=== PATIENT | male | born 1945 | race Caucasian/White ===

== ENCOUNTER → 2019-09-19 10:25 | Outpatient (CLI) | payer MEDICARE, SELFPAY ==
[2019-09-19 11:31] LABS: Hemoglobin A1C% w Est Avg Glu 6.1 % (4.0-6.0)
[2019-09-19 12:02] LABS: Alanine Aminotransferase 36 IU/L (21-72); Albumin 4.3 g/dL (3.5-5.0); Albumin Globulin Ratio 1.5 (1.0-2.8); Alkaline Phosphatase 85 U/L (38-126); Aspartate Aminotransferase 42 IU/L (17-59); BUN Creatinine Ratio 13.3 (6-22); Bilirubin Total 0.8 mg/dL (0.2-1.3); Blood Urea Nitrogen 12 mg/dL (9-20); Calcium 9.5 mg/dL (8.4-10.2); Carbon Dioxide 29 mmol/L (22-32); Chloride 102 mmol/L (98-107); Cholesterol 205 mg/dL (140-199); Estimated Glomerular Filt Rate > 60.0 mL/min (>60); Globulin 2.8 g/dL (1.7-4.1); Glucose 133 mg/dL (80-110); HDL Cholesterol 38 mg/dL (40-60); HEMOLYSIS < 15 (0-50); LDL Cholesterol Calculated 142 mg/dL (<100); Potassium 5.2 mmol/L (3.4-5.1); Sodium 141 mmol/L (137-145); Total Protein 7.1 g/dL (6.3-8.2); Triglycerides 125 mg/dL (35-150)
[2019-09-19 12:04] LABS: Creatinine Urine Random 74.4 mg/dL
[2019-09-19 12:09] LABS: Microalbumin Urine Random 0.6 mg/dL (0-1.6)
== END ==
PROVIDERS: Visit Provider Internal Medicine Endocrinology, Diabetes & Metabolism
DX: E11.40 Type 2 diabetes mellitus with diabetic neuropathy, unspecified (principal); E78.5 Hyperlipidemia, unspecified
CPT/HCPCS: 36415; 80053; 80061; 82043; 82570; 83036

== ENCOUNTER 2020-03-15 09:50 | Emergency (ER) | payer MEDICARE, SELFPAY ==
[2020-03-15 09:55] VITALS: BP 204/93; PULSE 81; RESP 15; TEMP 36.3; O2SAT 96; BMI 31.4
[2020-03-15 10:45] VITALS: BP 199/89
--- NOTE | 2020-03-15 10:48 | ED.SKABFB ---
HPI - Skin/Abscess/Foreign Bdy General Chief complaint: Skin/Abscess/Foreign Body Stated complaint: Infection of lt side face Time Seen by Provider: 03/15/20 10:29 Source: patient and family Mode of arrival: Ambulatory Limitations: no limitations History of Present Illness HPI narrative: Patient placed on amoxicillin by his pain management doctor yesterday. Onset yesterday morning around 3:00 a.m.. Patient had left cheek and jaw pain and swelling. Denies any dental pain. No known injuries. History of diabetes. Blood pressure noted. No history of high blood pressure on the medications for blood pressure. Patient states he is anxious. Family physician is from [place]. Patient does live up here. History of shingles 20 years ago. Patient states burning sensation to the left face. Has some swelling. Denies any recent illness cough cold congestion fever chills runny nose or cough. Related Data Home Medications Medication Instructions Recorded Confirmed cholecalciferol (vitamin D3) 2,000 iu PO QDAY #0 03/24/17 [Vitamin D3] diphenhydramine-acetaminophen 1 tab PO HSP PRN #0 03/24/17 [Tylenol PM Extra Strength] meloxicam [Mobic] 15 mg PO QPM #0 03/24/17 metformin [Glucophage XR] 1,000 mg PO BIDCC #0 03/24/17 omega 5-xqj-bvj-fish oil [Fish Oil] 1,000 mg PO QDAY #0 03/24/17 psyllium husk [Metamucil] 0.52 gm PO QDAYP PRN #0 03/24/17 gabapentin [Neurontin] 1,800 mg PO HS #0 03/25/17 rosuvastatin 5 mg PO HS #0 08/14/17 Previous Rx's Medication Instructions Recorded aspirin 81 mg PO QDAY #30 tab 03/25/17 lisinopril 5 mg PO DAILY #14 tab 03/15/20 Allergies Allergy/AdvReac Type Severity Reaction Status Date / Time No Known Drug Allergies Allergy Verified 03/15/20 10:00 Review of Systems Review of Systems Narrative: GENERAL: Denies chills, fatigue, malaise, fever, sweats. HEENT: Denies sinus pain, ear pain, sore throat, difficulty swallowing, dizziness. RESPIRATORY: Denies dyspnea, cough, wheezing, hemoptysis, sputum. CARDIOVASCULAR: Denies chest pain, palpitations, orthopnea, edema, GASTROINTESTINAL: Denies nausea, vomiting, abdominal pain, diarrhea, constipation, melena. : Denies dysuria, frequency, incontinence, hematuria, urinary retention. MUSCULOSKELETAL: denies weakness, joint pain, or bony pain SKIN: Has rash on the face NEUROLOGIC: Denies weakness, headache, numbness, change in speech, confusion, seizures, incoordination. PSYCHIATRIC: No concerning psychosocial issues. 12 point review of systems is negative except for those stated above ROS Unobtainable: All systems reviewed & are unremarkable except as noted in HPI and below Patient History Social History Smoking Status: Unknown if ever smoked Smoking Status: Unknown if ever smoked alcohol intake frequency: holidays/special occasions only Substance Use Type: does not use Exam Narrative Exam Narrative: GENERAL: [] year old patient appears stated age. Well-nourished, well-developed patient, in no distress, not toxic HEAD: Atraumatic. Normocephalic. EYES: No conjunctivitis. No eyelid edema or erythema. No rash on the nose. Denies any eye pain ENT: Nose without bleeding, purulent drainage. Throat without erythema, tonsillar hypertrophy or exudate. Airway patent. Nontender teeth on palpation. No palpable abscess no vesicles or rash on the nose. NECK: Trachea midline. Non tender NEURO: AOx3. SKIN: Reproducible tenderness at the skin at the left cheek. Mild edema at the jawline. No palpable abscess. No vesicles. Mild erythema at the left cheek Initial Vital Signs Initial Vital Signs: Vital Signs Temperature 97.3 F L 03/15/20 09:55 Pulse Rate 81 03/15/20 09:55 Respiratory Rate 15 03/15/20 09:55 Blood Pressure 204/93 H 03/15/20 09:55 Pulse Oximetry 96 03/15/20 09:55 Course Orders Ordered: Discontinued Medications Lisinopril (Zestril) 5 mg PO NOW ONE Stop: 03/15/20 10:50 Last Admin: 03/15/20 11:04 Dose: 5 mg Documented by: TALHA Reevaluation(s) Reevaluation #1: Time 11:49 a.m.. Blood pressure recheck. 204/87. Patient asymptomatic with blood pressure. Appropriate for discharge home, given prescription for lisinopril. Patient does have a family physician. Vital Signs Vital signs: Vital Signs - 8 hr 03/15/20 09:55 03/15/20 10:45 03/15/20 11:41 Temperature 97.3 F L Pulse Rate 81 68 Respiratory Rate 15 18 Blood Pressure 204/93 H Blood Pressure [Right Arm] 199/89 H 204/87 H Pulse Oximetry 96 98 MDM - Skin/Abscess/Foreign Bdy Differential Diagnosis Differential diagnosis: Likely abscess of skin or subcutaneous tissue, cellulitis and other (Herpes zoster) MDM Narrative Medical decision making narrative: Patient and agree observation at home no new changes or medications other than lisinopril. Patient cannot get to his primary care physician due to coronavirus and [id number] guidelines. Will start lisinopril here. Patient agrees with observation for the cellulitis as tomorrow would be 72 hours and patient has only had 3 doses of amoxicillin since yesterday. Agrees will return tomorrow if not improving and may consider acyclovir and prednisone. Discharge Plan Departure Patient Disposition: Home Clinical Impression: Cellulitis Qualifiers: Site of cellulitis: face Qualified Code(s): L03.211 - Cellulitis of face Instructions: DI for Cellulitis -- Adult, Treatments for High Blood Pressure: More Than Just Taking a Pill, Essential Hypertension Activity Restrictions/Additional Instructions: Return if worse or not improving by tomorrow. Call your family doctor for appointment for recheck of blood pressure. To be seen within a week. Prescriptions: New lisinopril 5 mg tablet 5 mg PO DAILY Qty: 14 RF: 0 No Action metformin [Glucophage XR] 500 MG tablet extended release 24 hr 1,000 mg PO BIDCC Qty: 0 RF: 0 meloxicam [Mobic] 15 MG tablet 15 mg PO QPM Qty: 0 RF: 0 diphenhydramine-acetaminophen [Tylenol PM Extra Strength] 500 MG/25 MG tablet 1 tab PO HSP PRNQty: 0 RF: 0 psyllium husk [Metamucil] 0.52 GM capsule 0.52 gm PO QDAYP PRNQty: 0 RF: 0 cholecalciferol (vitamin D3) [Vitamin D3] 2,000 UNIT capsule 2,000 iu PO QDAY Qty: 0 RF: 0 omega 4-hgq-zdo-fish oil [Fish Oil] 1,000 MG capsule 1,000 mg PO QDAY Qty: 0 RF: 0 gabapentin [Neurontin] 600 MG tablet 1,800 mg PO HS Qty: 0 RF: 0 aspirin 81 MG tablet,delayed release (DR/EC) 81 mg PO QDAY Qty: 30 RF: 0 rosuvastatin 5 MG tablet 5 mg PO HS Qty: 0 RF: 0
[2020-03-15] MEDS: lisinopriL 5 MG TABLET PO (11:04)
[2020-03-15 11:41] VITALS: BP 204/87; PULSE 68; RESP 18; O2SAT 98
--- NOTE | 2020-03-15 11:41 | PC.NURSE ---
denies headache,vision changes, chest pain, or shortness of breath. noted bilateral lower legs edema, pt states, its always swelling.
--- NOTE | 2020-03-15 11:54 | ED.SKABFB ---
HPI - Skin/Abscess/Foreign Bdy General Chief complaint: Skin/Abscess/Foreign Body Stated complaint: Infection of lt side face Time Seen by Provider: 03/15/20 10:29 Source: patient and family Mode of arrival: Ambulatory Limitations: no limitations Related Data Home Medications Medication Instructions Recorded Confirmed cholecalciferol (vitamin D3) 2,000 iu PO QDAY #0 03/24/17 [Vitamin D3] diphenhydramine-acetaminophen 1 tab PO HSP PRN #0 03/24/17 [Tylenol PM Extra Strength] meloxicam [Mobic] 15 mg PO QPM #0 03/24/17 metformin [Glucophage XR] 1,000 mg PO BIDCC #0 03/24/17 omega 4-hsj-bhc-fish oil [Fish Oil] 1,000 mg PO QDAY #0 03/24/17 psyllium husk [Metamucil] 0.52 gm PO QDAYP PRN #0 03/24/17 gabapentin [Neurontin] 1,800 mg PO HS #0 03/25/17 rosuvastatin 5 mg PO HS #0 08/14/17 Previous Rx's Medication Instructions Recorded aspirin 81 mg PO QDAY #30 tab 03/25/17 lisinopril 5 mg PO DAILY #14 tab 03/15/20 Allergies Allergy/AdvReac Type Severity Reaction Status Date / Time No Known Drug Allergies Allergy Verified 03/15/20 10:00 Patient History Social History Smoking Status: Unknown if ever smoked Smoking Status: Unknown if ever smoked alcohol intake frequency: holidays/special occasions only Substance Use Type: does not use Exam Initial Vital Signs Initial Vital Signs: Vital Signs Temperature 97.3 F L 03/15/20 09:55 Pulse Rate 81 03/15/20 09:55 Respiratory Rate 15 03/15/20 09:55 Blood Pressure 204/93 H 03/15/20 09:55 Pulse Oximetry 96 03/15/20 09:55 Course Orders Ordered: Discontinued Medications Lisinopril (Zestril) 5 mg PO NOW ONE Stop: 03/15/20 10:50 Last Admin: 03/15/20 11:04 Dose: 5 mg Documented by: TALHA Vital Signs Vital signs: Vital Signs - 8 hr 03/15/20 09:55 03/15/20 10:45 03/15/20 11:41 Temperature 97.3 F L Pulse Rate 81 68 Respiratory Rate 15 18 Blood Pressure 204/93 H Blood Pressure [Right Arm] 199/89 H 204/87 H Pulse Oximetry 96 98 MDM - Skin/Abscess/Foreign Bdy MDM Narrative Medical decision making narrative: Your blood pressure is slightly elevated and this can cause long-term health problems if not addressed appropriately. Please follow-up with your doctor to discuss your options Discharge Plan Departure Patient Disposition: Home Clinical Impression: Cellulitis Qualifiers: Site of cellulitis: face Qualified Code(s): L03.211 - Cellulitis of face Instructions: DI for Cellulitis -- Adult, Treatments for High Blood Pressure: More Than Just Taking a Pill, Essential Hypertension Activity Restrictions/Additional Instructions: Return if worse or not improving by tomorrow. Call your family doctor for appointment for recheck of blood pressure. To be seen within a week. Prescriptions: New lisinopril 5 mg tablet 5 mg PO DAILY Qty: 14 RF: 0 No Action metformin [Glucophage XR] 500 MG tablet extended release 24 hr 1,000 mg PO BIDCC Qty: 0 RF: 0 meloxicam [Mobic] 15 MG tablet 15 mg PO QPM Qty: 0 RF: 0 diphenhydramine-acetaminophen [Tylenol PM Extra Strength] 500 MG/25 MG tablet 1 tab PO HSP PRNQty: 0 RF: 0 psyllium husk [Metamucil] 0.52 GM capsule 0.52 gm PO QDAYP PRNQty: 0 RF: 0 cholecalciferol (vitamin D3) [Vitamin D3] 2,000 UNIT capsule 2,000 iu PO QDAY Qty: 0 RF: 0 omega 4-iby-jzo-fish oil [Fish Oil] 1,000 MG capsule 1,000 mg PO QDAY Qty: 0 RF: 0 gabapentin [Neurontin] 600 MG tablet 1,800 mg PO HS Qty: 0 RF: 0 aspirin 81 MG tablet,delayed release (DR/EC) 81 mg PO QDAY Qty: 30 RF: 0 rosuvastatin 5 MG tablet 5 mg PO HS Qty: 0 RF: 0
--- NOTE | 2020-03-15 11:55 | ED.SKABFB ---
HPI - Skin/Abscess/Foreign Bdy General Chief complaint: Skin/Abscess/Foreign Body Stated complaint: Infection of lt side face Time Seen by Provider: 03/15/20 10:29 Source: patient and family Mode of arrival: Ambulatory Limitations: no limitations Related Data Home Medications Medication Instructions Recorded Confirmed cholecalciferol (vitamin D3) 2,000 iu PO QDAY #0 03/24/17 [Vitamin D3] diphenhydramine-acetaminophen 1 tab PO HSP PRN #0 03/24/17 [Tylenol PM Extra Strength] meloxicam [Mobic] 15 mg PO QPM #0 03/24/17 metformin [Glucophage XR] 1,000 mg PO BIDCC #0 03/24/17 omega 9-vhd-bhx-fish oil [Fish Oil] 1,000 mg PO QDAY #0 03/24/17 psyllium husk [Metamucil] 0.52 gm PO QDAYP PRN #0 03/24/17 gabapentin [Neurontin] 1,800 mg PO HS #0 03/25/17 rosuvastatin 5 mg PO HS #0 08/14/17 Previous Rx's Medication Instructions Recorded aspirin 81 mg PO QDAY #30 tab 03/25/17 lisinopril 5 mg PO DAILY #14 tab 03/15/20 Allergies Allergy/AdvReac Type Severity Reaction Status Date / Time No Known Drug Allergies Allergy Verified 03/15/20 10:00 Patient History Social History Smoking Status: Unknown if ever smoked Smoking Status: Unknown if ever smoked alcohol intake frequency: holidays/special occasions only Substance Use Type: does not use Exam Initial Vital Signs Initial Vital Signs: Vital Signs Temperature 97.3 F L 03/15/20 09:55 Pulse Rate 81 03/15/20 09:55 Respiratory Rate 15 03/15/20 09:55 Blood Pressure 204/93 H 03/15/20 09:55 Pulse Oximetry 96 03/15/20 09:55 Course Orders Ordered: Discontinued Medications Lisinopril (Zestril) 5 mg PO NOW ONE Stop: 03/15/20 10:50 Last Admin: 03/15/20 11:04 Dose: 5 mg Documented by: TALHA Reevaluation(s) Reevaluation #1: No acute distress. Not toxic at discharge. Patient and desire discharge home Vital Signs Vital signs: Vital Signs - 8 hr 03/15/20 09:55 03/15/20 10:45 03/15/20 11:41 Temperature 97.3 F L Pulse Rate 81 68 Respiratory Rate 15 18 Blood Pressure 204/93 H Blood Pressure [Right Arm] 199/89 H 204/87 H Pulse Oximetry 96 98 Discharge Plan Departure Patient Disposition: Home Clinical Impression: Cellulitis Qualifiers: Site of cellulitis: face Qualified Code(s): L03.211 - Cellulitis of face Instructions: DI for Cellulitis -- Adult, Treatments for High Blood Pressure: More Than Just Taking a Pill, Essential Hypertension Activity Restrictions/Additional Instructions: Return if worse or not improving by tomorrow. Call your family doctor for appointment for recheck of blood pressure. To be seen within a week. Prescriptions: New lisinopril 5 mg tablet 5 mg PO DAILY Qty: 14 RF: 0 No Action metformin [Glucophage XR] 500 MG tablet extended release 24 hr 1,000 mg PO BIDCC Qty: 0 RF: 0 meloxicam [Mobic] 15 MG tablet 15 mg PO QPM Qty: 0 RF: 0 diphenhydramine-acetaminophen [Tylenol PM Extra Strength] 500 MG/25 MG tablet 1 tab PO HSP PRNQty: 0 RF: 0 psyllium husk [Metamucil] 0.52 GM capsule 0.52 gm PO QDAYP PRNQty: 0 RF: 0 cholecalciferol (vitamin D3) [Vitamin D3] 2,000 UNIT capsule 2,000 iu PO QDAY Qty: 0 RF: 0 omega 8-ter-rmk-fish oil [Fish Oil] 1,000 MG capsule 1,000 mg PO QDAY Qty: 0 RF: 0 gabapentin [Neurontin] 600 MG tablet 1,800 mg PO HS Qty: 0 RF: 0 aspirin 81 MG tablet,delayed release (DR/EC) 81 mg PO QDAY Qty: 30 RF: 0 rosuvastatin 5 MG tablet 5 mg PO HS Qty: 0 RF: 0
== END 2020-03-15 12:02 | disposition home or self-care (01) ==
PROVIDERS: Emergency Provider Emergency Medicine
DX: L03.211 Cellulitis of face (principal); I10 Essential (primary) hypertension
CPT/HCPCS: 99283

== ENCOUNTER → 2022-02-20 14:55 | Outpatient (CLI) | payer MEDICARE, SELFPAY ==
[2022-02-20 16:07] LABS: Add Manual Diff / Slide Review NO; Basophils Absolute Auto 100 /uL (0-100); Basophils Percent Auto 1.2 % (0-2); Eosinophils Absolute Auto 300 /uL (0-450); Eosinophils Percent Auto 3.5 % (2-4); Hematocrit 38.2 % (41-53); Hemoglobin 13.2 g/dL (13.5-17.5); Lymphocytes Absolute Auto 1300 /uL (1100-4500); Lymphocytes Percent Auto 17.5 % (25-40); Mean Corpuscular HGB Conc 34.5 % (30-36); Mean Corpuscular Hemoglobin 30.7 PG (26-34); Mean Corpuscular Volume 88.9 fL (80-100); Monocytes Absolute Auto 500 /uL (0-900); Monocytes Percent Auto 6.3 % (3-14); Neutrophils Absolute Auto 5400 /uL (1500-7000); Neutrophils Percent Auto 71.5 % (50-75); Platelet Count 217 X10^3/uL (150-400); Red Blood Cell Count 4.29 X10^6/uL (4.5-5.9); Red Cell Distribution Width 13.4 % (11.6-14.8); White Blood Cell Count 7.5 X10^3/uL (4.5-11.0)
[2022-02-20 16:24] LABS: Alanine Aminotransferase 43 IU/L (<50); Albumin 4.4 g/dL (3.5-5.0); Albumin Globulin Ratio 1.6 (1.0-2.8); Alkaline Phosphatase 73 U/L (38-126); Aspartate Aminotransferase 33 IU/L (17-59); BUN Creatinine Ratio 13.2 (6-22); Bilirubin Total 0.7 mg/dL (0.2-1.3); Blood Urea Nitrogen 10 mg/dL (9-20); Carbon Dioxide 32 mmol/L (22-32); Chloride 103 mmol/L (98-107); Estimated Glomerular Filt Rate > 60.0 mL/min (>60); Globulin 2.7 g/dL (1.7-4.1); Glucose 158 mg/dL (80-110); HEMOLYSIS < 15 (0-50); Potassium 4.2 mmol/L (3.4-5.1); Sodium 142 mmol/L (137-145); Total Protein 7.1 g/dL (6.3-8.2)
[2022-02-20 16:48] LABS: Carcinoembryonic Antigen 2.1 ng/mL (0.1-3.0)
== END ==
PROVIDERS: PCP Family Medicine; Referring Provider Internal Medicine Gastroenterology; Visit Provider Internal Medicine Gastroenterology
DX: C20 Malignant neoplasm of rectum (principal)
CPT/HCPCS: 36415; 80053; 82378; 85025

== ENCOUNTER → 2022-02-28 12:16 | Outpatient (CLI) | payer MEDICARE, SELFPAY ==
--- NOTE | 2022-02-28 12:19 | DI.CT.S_ITS ---
PROCEDURE: CT ABDOMEN PELVIS W CON INDICATIONS: Malignant neoplasm of rectum TECHNIQUE: After the administration of oral and IV contrast, axial sections were acquired from the lung bases to the pubic symphysis. Coronal and sagittal reformats were performed. For radiation dose reduction, the following was used: automated exposure control, adjustment of mA and/or kV according to patient size. COMPARISON: None. FINDINGS: Image quality: Excellent. Lung bases: Unremarkable. Heart: No significant findings. ABDOMEN: Liver: Diffuse fatty liver infiltration is noted. The liver is normal in size and demonstrates no suspicious lesions. Gallbladder: Unremarkable. Biliary ducts: Unremarkable. Pancreas: Unremarkable. Spleen: Unremarkable. Adrenal Glands: Unremarkable. Kidneys and Ureters: A simple appearing right renal cyst is seen laterally that measures 17 mm. The kidneys demonstrate normal size and enhance symmetrically. Stomach and Bowel: In this patient with this given history, scrutiny is given to the rectum. Generalized wall thickening is seen within the rectum, yet without a oj mass identified on these images. No other areas of colonic wall thickening can be seen. No dilated loops of small bowel are seen. No significant gastric abnormality is seen Peritoneum: No abnormal intraperitoneal fluid. No free air. Ventral Wall: No hernia. Abdominal Nodes: No retroperitoneal or mesenteric adenopathy by size criteria. Vessels: Aorta and inferior vena cava are normal in size. Atherosclerotic calcification is noted. PELVIS: Pelvic Organs: Prostate seed implants are seen. Bladder: Unremarkable. Pelvic Nodes: Prominence of groin lymph nodes can be seen, without oj enlargement. No enlarged pelvic lymph nodes are seen. Miscellaneous: No inguinal hernias are seen. Bones: Mild dextroconvex scoliotic curvature is seen. IMPRESSION: Generalized wall thickening is seen of the rectum, yet without focal masses seen on these images. Prominence of groin lymph nodes can be seen, yet without oj enlargement. Incidental note is made of: Fatty liver infiltration Simple appearing right renal cyst Prostate seed implants Mild dextroconvex scoliotic curvature Dictated by: Bhaskar Neal M.D. on 02/28/2022 at 16:16 Approved by: Bhaskar Neal M.D. on 02/28/2022 at 16:19
== END ==
PROVIDERS: PCP Family Medicine; Referring Provider Internal Medicine Gastroenterology; Visit Provider Internal Medicine Gastroenterology
DX: C20 Malignant neoplasm of rectum (principal); K76.0 Fatty (change of) liver, not elsewhere classified; N28.1 Cyst of kidney, acquired
CPT/HCPCS: 74177; Q9967

== ENCOUNTER → 2022-03-03 11:15 | Outpatient (CLI) | payer MEDICARE, SELFPAY ==
[2022-03-03 13:39] LABS: COVID-19 CEPHEID PCR (VTM/NP) Negative (Negative)
== END ==
PROVIDERS: PCP Family Medicine; Referring Provider Family Medicine Sleep Medicine; Visit Provider Family Medicine Sleep Medicine
DX: Z20.822 Contact with and (suspected) exposure to COVID-19 (principal)
CPT/HCPCS: C9803; U0003; U0005

== ENCOUNTER → 2022-03-17 10:36 | Outpatient (CLI) | payer MEDICARE, SELFPAY ==
[2022-03-17 13:55] LABS: COVID-19 CEPHEID PCR (VTM/NP) Negative (Negative)
== END ==
PROVIDERS: PCP Family Medicine; Visit Provider Family Medicine Sleep Medicine
DX: Z20.822 Contact with and (suspected) exposure to COVID-19 (principal)
CPT/HCPCS: C9803; U0003; U0005

== ENCOUNTER → 2023-02-06 11:43 | Outpatient (CLI) | payer OTHER, SELFPAY ==
--- NOTE | 2023-02-06 11:46 | DI.CT.S_ITS ---
PROCEDURE: CT CHEST ABD PEL W CON INDICATIONS: MALIGNANT NEOPLASM OF RECTUM TECHNIQUE: After the administration of oral and intravenous contrast, axial sections acquired from the supraclavicular neck to the pubic symphysis. Coronal and sagittal reformats were performed. For radiation dose reduction, the following was used: automated exposure control, adjustment of mA and/or kV according to patient size. COMPARISON: [facility], CT, CT ABDOMEN PELVIS W CON, 02/28/2022, 13:23. FINDINGS: CHEST: Lower Neck: No enlarged lymph nodes. Axillae: No enlarged lymph nodes. Chest Wall: A right chest port is present with tip of the catheter terminating near the superior cavoatrial junction. Lungs and pleura: No consolidation or pleural effusion. 3 millimeter nodule left lower lobe (3). Heart: No pericardial effusion. Thoracic Vessels: The aorta and pulmonary arteries demonstrate normal size. Mediastinum and Alem: No enlarged lymph nodes. Esophagus: No wall thickening. ABDOMEN: Liver: Unremarkable. Gallbladder: Unremarkable. Biliary ducts: Unremarkable. Pancreas: Unremarkable. Spleen: Unremarkable. Adrenal Glands: Unremarkable. Kidneys and Ureters: No hydronephrosis. Stomach and Bowel: No evidence of small bowel obstruction. Suggestion of segmental wall thickening at the low rectum which could correspond to the provided history of rectal neoplasm. Rectal masses are not well evaluated by CT. Peritoneum: No abnormal intraperitoneal fluid. No free air. Abdominal Nodes: No retroperitoneal or mesenteric adenopathy by size criteria. Vessels: Aorta and inferior vena cava are normal in size. PELVIS: Pelvic Organs: Prostate brachytherapy seeds are present. Bladder: Unremarkable. Pelvic Nodes: Few prominent but subcentimeter mesorectal and superior rectal lymph nodes present, not well evaluated/characterized by CT. Borderline enlarged left external iliac chain lymph node measures 1.0 centimeters (2/111) but is not significantly changed since the 2021 comparison exam and is nonspecific. Bones: Multilevel degenerative change of the visualized spine. IMPRESSION: 1. There is suggestion of segmental wall thickening at the low rectum which could correspond to the provided history of rectal neoplasm. Rectal masses are not well evaluated by CT. 2. A few prominent but subcentimeter mesorectal and superior rectal lymph nodes are present, not well evaluated/characterized by CT and indeterminate. Attention on follow-up is recommended. 3. No findings highly suspicious for distant metastatic disease identified. 4. A borderline enlarged left external iliac chain lymph node is present but is not significantly changed since 2021 and is nonspecific, could be reactive. Attention on follow-up is recommended. 5. Indeterminate 3 millimeter left lower lobe pulmonary nodule. Attention on follow-up recommended. Dictated by: Chucho Myers M.D. on 02/06/2023 at 14:28 Approved by: Chucho Myers M.D. on 02/06/2023 at 15:04
== END ==
PROVIDERS: PCP Family Medicine; Referring Provider Internal Medicine Medical Oncology; Visit Provider Internal Medicine Medical Oncology
DX: C20 Malignant neoplasm of rectum (principal); R59.0 Localized enlarged lymph nodes; R91.1 Solitary pulmonary nodule
CPT/HCPCS: 71260; 74177

== ENCOUNTER → 2023-07-10 13:06 | Outpatient (CLI) | payer OTHER, SELFPAY ==
--- NOTE | 2023-07-10 | DI.CT.S_ITS ---
PROCEDURE: CT CHEST ABD PEL W CON INDICATIONS: RECTAL CANCER TECHNIQUE: After the administration of oral and intravenous contrast, axial sections acquired from the supraclavicular neck to the pubic symphysis. Coronal and sagittal reformats were performed. For radiation dose reduction, the following was used: automated exposure control, adjustment of mA and/or kV according to patient size. COMPARISON: [facility], CT, CT CHEST ABD PEL W CON, 02/06/2023, 13:34. FINDINGS: Image quality: Excellent. CHEST: Lower Neck: No enlarged lymph nodes. Thyroid: Normal CT appearance. Axillae: No enlarged lymph nodes. Chest Wall: Right chest MediPort. Lungs and Airways: There is mucous dependently in the left main stem bronchus. No mucous plugging distally. Peripheral airways are patent. Several tiny punctate lung nodules have not significantly changed since the prior study no new lung nodules, or consolidations. Right medial upper lobe thin-walled cyst, stable. Pleura: No pneumothorax or pleural effusions. Heart: Heart size is normal. No pericardial effusion. Thoracic Vessels: The aorta and pulmonary arteries demonstrate normal size. Mediastinum and Alem: No enlarged lymph nodes. Esophagus: No wall thickening. No hiatal hernia. ABDOMEN: Liver: No solid masses. Gallbladder: Normal. Biliary ducts: Nondilated. Pancreas: Diminutive. Spleen: Normal size. Adrenal Glands: Mild stable thickening of the left adrenal gland body. No new nodules. Kidneys and Ureters: Symmetric enhancement. No nephrolithiasis or hydronephrosis. No hydroureter. Right corticomedullary renal cyst. Stomach and Bowel: Similar lobulated wall thickening in the right anterolateral low rectum, less prominent compared to the prior study, potentially site of primary disease. Solid stool in increased quantity throughout the transverse and remaining distal colon. There is circumferential wall thickening of the colon at the hepatic flexure which may be peristalsis and was not present previously. The ascending colon is decompressed. Stomach and small bowel loops are normal. Peritoneum: No abnormal intraperitoneal fluid. No free air. Ventral Wall: Tiny fat containing umbilical hernia. Abdominal Nodes: No retroperitoneal or mesenteric adenopathy by size criteria. Vessels: Aorta and inferior vena cava are normal in size. Moderate abdominal aortic atherosclerotic calcification. PELVIS: Pelvic Organs: Several brachytherapy seeds in the prostate gland. Bladder: Partially distended. Otherwise normal. Pelvic Nodes: Interval resolution of right mesorectal lymph nodes and decreased size of a previously suspicious superior rectal node. Borderline prominent left common iliac node measuring 0.8 cm short axis, decreased by 2 mm in size. Decreased size of borderline bilateral external iliac chain lymph nodes. Miscellaneous: No inguinal hernias are seen. Bones: No suspicious bone lesions. IMPRESSION: 1. No evidence of metastatic disease in the chest. 2. Interval decrease in size of several pelvic lymph nodes and decreased thickening of the 10:00 o'clock - 12:00 o'clock segment of the low rectum, potentially primary tumor. 3. Increased quantity of solid colonic stool present and probable peristalsis at the hepatic flexure. Dictated by: Poornima Brewster M.D. on 07/10/2023 at 22:44 Approved by: Poornima Brewster M.D. on 07/10/2023 at 23:02
== END ==
PROVIDERS: PCP Family Medicine; Referring Provider Internal Medicine Medical Oncology; Visit Provider Internal Medicine Medical Oncology
DX: C20 Malignant neoplasm of rectum (principal)
CPT/HCPCS: 71260; 74177; Q9967

== ENCOUNTER → 2024-01-22 12:03 | Outpatient (CLI) | payer OTHER, SELFPAY ==
--- NOTE | 2024-01-22 12:05 | DI.CT.S_ITS ---
PROCEDURE: CT CHEST ABD PEL W CON INDICATIONS: RECTAL CANCER TECHNIQUE: After the administration of intravenous contrast, 5 mm thick sections acquired from the lung apices to the symphysis. 5 mm coronal and sagittal reformats were performed, with additional 7 mm MIP reformats through the lungs. For radiation dose reduction, the following was used: automated exposure control, adjustment of mA and/or kV according to patient size. COMPARISON: [facility], CT, CT CHEST ABD PEL W CON, 07/10/2023, 15:22. FINDINGS: Image quality: Excellent. CHEST: Lower Neck: No enlarged lymph nodes. Thyroid: No thyroid nodules which require sonographic follow up, per consensus guidelines. Axillae: No enlarged lymph nodes. Chest Wall: Right chest wall port tip terminates in the cavoatrial junction. Lungs and Pleura: No pneumothorax or pleural effusions. Stable 1.1 x 1.9 cm part solid nodule with a 3 mm solid component in the lateral right lower lobe (series 3, image 189). Moderate centrilobular emphysema. Stable pulmonary micro nodules. Heart: Heart size is normal. No pericardial effusion. Moderate coronary artery calcifications. Thoracic Vessels: The aorta and pulmonary arteries demonstrate normal size. Mediastinum and Laem: No enlarged lymph nodes. Esophagus: No wall thickening. No hiatal hernia. ABDOMEN: Liver: No solid mass. Gallbladder: No radiopaque gallstones or wall thickening. Biliary ducts: No biliary dilation. Pancreas: No ductal dilation. Spleen: Size is within normal limits. Adrenal Glands: No adrenal nodules. Kidneys and Ureters: No hydronephrosis. No solid mass. No complex renal cystic lesion which requires follow up. Stomach and Bowel: Abnormal thickening of the hepatic flexure, similar to prior. No adjacent adenopathy. No measurable rectal mass. Peritoneum: No abnormal intraperitoneal fluid. No free air. Ventral Wall: No significant ventral hernia. Abdominal Nodes: No retroperitoneal or mesenteric adenopathy by size criteria. Vessels: Aorta and inferior vena cava are normal in size. PELVIS: Pelvic Organs: Prostate brachytherapy clips . Bladder: No bladder wall thickening, accounting for underdistention. Pelvic Nodes: Similar punctate mesorectal lymph node, nonspecific (series 2, image 105). Similar nonenlarged external iliac chain lymph nodes. Largest measuring 8 mm short axis, with a normal reniform shape on the left (series 2, image 111). Miscellaneous: Small inguinal hernias containing fat. Bones: No aggressive osseous abnormality. IMPRESSION: No measurable rectal mass. Nonenlarged mesorectal and pelvic chain lymph nodes are again noted. Abnormal thickening of the hepatic flexure, persistent from prior. Recommend direct visualization to exclude malignancy. Stable 1.1 x 1.9 cm part solid nodule with a 3 mm solid component in the lateral right lower lobe. Continued attention on follow-up, as findings could represent a low-grade pulmonary adenocarcinoma. This would be too small due to detect via PET-CT. Dictated by: Brendan Lutz M.D. on 01/22/2024 at 15:09 Approved by: Brendan Lutz M.D. on 01/22/2024 at 15:19
[2024-01-22 12:28] LABS: Estimated Glomerular Filt Rate > 60 mL/min (>60)
== END ==
PROVIDERS: Radiology Diagnostic Radiology; PCP Family Medicine; Referring Provider Internal Medicine Medical Oncology; Visit Provider Internal Medicine Medical Oncology
DX: C20 Malignant neoplasm of rectum (principal); R91.8 Other nonspecific abnormal finding of lung field; I25.10 Atherosclerotic heart disease of native coronary artery without angina pectoris; K40.90 Unilateral inguinal hernia, without obstruction or gangrene, not specified as recurrent
CPT/HCPCS: 36415; 71260; 74177; 82565; Q9967

== ENCOUNTER → 2024-07-01 12:03 | Outpatient (CLI) | payer MEDICARE, SELFPAY ==
--- NOTE | 2024-07-01 12:05 | DI.CT.S_ITS ---
PROCEDURE: CT CHEST ABD PEL W CON INDICATIONS: MALIGNANT NEOPLASM OF RECTUM,PROSTATE TECHNIQUE: After the administration of intravenous contrast, 5 mm thick sections acquired from the lung apices to the symphysis. 5 mm coronal and sagittal reformats were performed, with additional 7 mm MIP reformats through the lungs. For radiation dose reduction, the following was used: automated exposure control, adjustment of mA and/or kV according to patient size. COMPARISON: [facility], CT, CT CHEST ABD PEL W CON, 01/22/2024, 13:24. FINDINGS: Image quality: Diagnostic Lungs and pleura: Persistent lateral right lower lobe ground-glass nodule with the 3-4 mm solid component, measuring about 1.9 cm in aggregate, persistent from prior imaging, likely an indolent adenocarcinoma spectrum lesion. No dense airspace disease or pleural effusions. There are background emphysematous and small cystic changes. Atelectasis and scarring also present. No new or enlarging solid nodules. Mediastinum, heart, and esophagus: Mild distal esophageal wall thickening is nonspecific. Overall esophagus has a patulous appearance with oral contrast, likely related to reflux or dysmotility. Right port catheter terminates in the proximal right atrium. There is a trace pericardial effusion. No pathologic lymph nodes by size criteria. Chest wall and thyroid: Thyroid and chest wall are unremarkable Liver: Unremarkable Gallbladder and biliary system: Gallbladder is mildly distended. No radiopaque stones or pathologic biliary dilation. There is a duodenal diverticulum adjacent to the and Pancreas: Moderate diffuse atrophy. No ductal dilation or discrete mass Spleen: Nonenlarged Adrenals: Bilateral thickening/small nodularity is stable from prior Kidneys: No solid mass. No hydronephrosis. A right renal cyst is present. No complicated lesion requiring follow-up identified. Vessels and lymph nodes: The main portal vein is patent. No abdominal aortic aneurysm or pathologic lymph nodes by size criteria. Note is made of noncalcified plaque versus laminar thrombus at the posterior aorta at the level of the SMA. Bowel and peritoneum: No small bowel obstruction or pathologic ascites. No discrete measurable mass. Overall moderate fecal loading. There is a small outpouching at the left side of the rectum, similar to prior Body wall: Small fat containing umbilical and inguinal hernias Pelvis: Bladder is under distended and thick wall, nonspecific appearance. Post treatment changes at the prostate. Bones: Degenerative changes, no acute or suspicious osseous finding. IMPRESSION: No new or enlarging disease identified in the chest, abdomen, or pelvis. Other stable and incidental findings are described above. 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 Dictated by: Brad Mendenhall M.D. on 07/01/2024 at 15:20 Approved by: Brad Mendenhall M.D. on 07/01/2024 at 15:28
== END ==
PROVIDERS: PCP Family Medicine; Referring Provider Internal Medicine Medical Oncology; Visit Provider Internal Medicine Medical Oncology
DX: C20 Malignant neoplasm of rectum (principal); C61 Malignant neoplasm of prostate; R91.8 Other nonspecific abnormal finding of lung field; K57.10 Diverticulosis of small intestine without perforation or abscess without bleeding; N28.1 Cyst of kidney, acquired; K42.9 Umbilical hernia without obstruction or gangrene; K40.90 Unilateral inguinal hernia, without obstruction or gangrene, not specified as recurrent
CPT/HCPCS: 71260; 74177; Q9967

== ENCOUNTER 2024-11-13 17:26 | Emergency (ER) | payer MEDICARE, SELFPAY ==
[2024-11-13 17:39] VITALS: BP 139/83; PULSE 78; RESP 15; TEMP 36.8; O2SAT 97; BMI 29.2
--- NOTE | 2024-11-13 17:48 | DI.RAD.S_ITS ---
PROCEDURE: XR HAND RT MIN 3V INDICATIONS: fall, right hand swelling TECHNIQUE: 3 views of the hand(s) acquired. COMPARISON: None. FINDINGS: Bones: Moderately displaced, comminuted fractures can be seen involving the 4th and 5th metacarpal shafts. No intra-articular involvement can be seen. Degenerative changes are seen throughout, which are most prominent involving the 1st carpometacarpal joint. Milder degenerative changes are seen elsewhere. Soft tissues: Soft tissue swelling is seen. IMPRESSION: Fractures of the 4th and 5th metacarpal shafts. No intra-articular involvement is seen. Dictated by: Bhaskar Neal M.D. on 11/13/2024 at 17:10 Approved by: Bhaskar Neal M.D. on 11/13/2024 at 17:11
--- NOTE | 2024-11-13 21:29 | ED.FALL ---
HPI - Fall General Chief Complaint: Fall Stated Complaint: GLF, Head/R Hand Injury, No Thinners Time Seen by Provider: 11/13/24 21:22 Source: patient Mode of arrival: Ambulatory History of Present Illness HPI Narrative: Patient is a 79-year-old male who has chronic pain spinal if she was has difficulty walking and balance issues at baseline uses a cane presents today after mechanical ground level fall. He was going to [employer] when he tripped. He did hit his head he has an abrasion on the left side. He did not lose consciousness no nausea or vomiting he has not on antiplatelet or anticoagulation medication. Really complaining of right hand pain. He is right-hand dominant he is some swelling in that right hand. Injury initially happened around noon it is now 9:30 p.m. he has not had any headache or other issue. He is chronic numbness and tingling which has not gotten any worse. Unsure of his tetanus status today but does not want a tetanus shot. Related Data Home Medications Medication Instructions Recorded Confirmed cholecalciferol (vitamin D3) 50 2,000 iu PO QDAY ##0 03/24/17 mcg (2,000 unit) capsule (Vitamin D3) diphenhydramine 25 1 tab PO HSP PRN ##0 03/24/17 mg-acetaminophen 500 mg tablet (Tylenol PM Extra Strength) meloxicam 15 mg tablet (Mobic) 15 mg PO QPM ##0 03/24/17 metformin 500 mg tablet,extended 1,000 mg PO BIDCC ##0 03/24/17 11/13/24 release 24 hr (Glucophage XR) omega 3-olo-pij-fish oil 1,000 mg 1,000 mg PO QDAY ##0 03/24/17 (120 mg-180 mg) capsule (Fish Oil) psyllium husk 0.52 gram capsule 0.52 gm PO QDAYP PRN ##0 03/24/17 (Metamucil) gabapentin 600 mg tablet 1,200 mg PO BID ##0 03/25/17 11/13/24 (Neurontin) rosuvastatin 5 mg tablet 5 mg PO HS ##0 08/14/17 oxycodone-acetaminophen 7.5 mg-325 1 tab PO Q4-5H PRN Pain, Severe 12/22/24 12/22/24 mg tablet Previous Rx's Medication Instructions Recorded aspirin 81 mg tablet,delayed 81 mg PO QDAY #30 tabs 03/25/17 release lisinopril 5 mg tablet 5 mg PO DAILY #14 tabs 03/15/20 Allergies Allergy/AdvReac Type Severity Reaction Status Date / Time cephalexin Allergy Severe Anaphylaxis Verified 11/13/24 17:35 Patient History Social History Smoking Status: Former smoker Smoking Status: Former smoker alcohol intake frequency: holidays/special occasions only Exam Initial Vital Signs Initial Vital Signs: Vital Signs Temperature 98.3 F 11/13/24 17:39 Pulse Rate 78 11/13/24 17:39 Respiratory Rate 15 11/13/24 17:39 Blood Pressure 139/83 11/13/24 17:39 Pulse Oximetry 97 11/13/24 17:39 Oxygen Delivery Method Room Air 11/13/24 17:39 GENERAL: Alert very pleasant 71-year-old male and in no acute distress. HEENT: Head left forehead contusion no laceration,EOMI, pupils reactive, face symmetric, moist mucous membranes NECK: Supple no vertebral tenderness CARDIOVASCULAR: Regular rate and rhythm without murmurs, rubs or gallops. RESPIRATORY: Breath sounds equal bilaterally, no wheezes rales or rhonchi. ABDOMEN: Soft, nontender. Normoactive bowel sounds all 4 quadrants. No guarding or rebound. EXTREMITIES: Normal range of motion, no clubbing or edema. Neurovascularly intact Right upper extremity hand swollen mostly over 4th and 5th metacarpal Wrist nontender distal radial pulse in tact elbow within normal limits no shoulder or clavicle abnormality NEUROLOGICAL: Alert and oriented x4.Normal gait and speech. Cranial nerves II through XII grossly intact. Drafter (Cad) Electronic strength equal bilaterally SKIN: Warm, dry, no laceration, no petechiae, no rashes or lesions. Procedures Orthopedic Splinting/Casting Injury #1: Side: right Upper Extremity Injury Location: hand Upper Extremity Immobilizer: ulnar gutter Post splinting neuro exam: intact Post splinting vascular exam: intact Placed by: Nursing Course Orders Ordered: ED Orders 11/13/24 17:48 XR hand RT min 3V Stat Vital Signs Vital signs: Vital Signs - 8 hr 11/13/24 22:16 Pulse Rate 74 Respiratory Rate 16 Blood Pressure 142/71 H Pulse Oximetry 96 Oxygen Delivery Method Room Air MDM - Fall Imaging Data Extremity x-ray #1: Radiologist's Impression: PROCEDURE: XR HAND RT MIN 3V INDICATIONS: fall, right hand swelling TECHNIQUE: 3 views of the hand(s) acquired. COMPARISON: None. FINDINGS: Bones: Moderately displaced, comminuted fractures can be seen involving the 4th and 5th metacarpal shafts. No intra-articular involvement can be seen. Degenerative changes are seen throughout, which are most prominent involving the 1st carpometacarpal joint. Milder degenerative changes are seen elsewhere. Soft tissues: Soft tissue swelling is seen. IMPRESSION: Fractures of the 4th and 5th metacarpal shafts. No intra-articular involvement is seen. Dictated by: Bhaskar Neal M.D. on 11/13/2024 at 17:10 Approved by: Bhaskar Neal M.D. on 11/13/2024 at 17:11 [facility] Narrative Medical decision making narrative: Patient is 71-year-old male presenting today after mechanical ground level fall. He does have a head abrasion and small hematoma no laceration. He does not have intracranial signs or symptoms. X-ray does confirm 4th and 5th metacarpals. Took pain medication prior to arrival does not need anymore pain meds now. Discharge Plan Departure Patient Disposition: Home Clinical Impression: Closed fracture of 4th metacarpal, Closed fracture of 5th metacarpal Instructions: DI for Boxer's Fracture Activity Restrictions/Additional Instructions: *You have been diagnosed with 4th and 5th metacarpal fracture *What to do: Is may or may not need surgery. Please keep splint in place all times. Cover for bathing. Elevate and ice often. *Continue to take medications as directed Take your pain medication as directed *Follow up with your primary care provider in 2-3 days or call [phone] Call [facility] office tomorrow to schedule follow-up appoint *Return to ER if you should have increasing pain numbness tingling weakness or any new, worsening or concerning symptoms Prescriptions: No Action metformin [Glucophage XR] 500 MG tablet extended release 24 hr 1,000 mg PO BIDCC Qty: 0 meloxicam [Mobic] 15 MG tablet 15 mg PO QPM Qty: 0 diphenhydramine-acetaminophen [Tylenol PM Extra Strength] 500 MG/25 MG tablet 1 tab PO HSP PRNQty: 0 psyllium husk [Metamucil] 0.52 GM capsule 0.52 gm PO QDAYP PRNQty: 0 cholecalciferol (vitamin D3) [Vitamin D3] 2,000 UNIT capsule 2,000 iu PO QDAY Qty: 0 omega 4-xdz-nxl-fish oil [Fish Oil] 1,000 MG capsule 1,000 mg PO QDAY Qty: 0 gabapentin [Neurontin] 600 MG tablet 1,200 mg PO BID Qty: 0 aspirin 81 MG tablet,delayed release (DR/EC) 81 mg PO QDAY Qty: 30 0RF rosuvastatin 5 MG tablet 5 mg PO HS Qty: 0 lisinopril 5 mg tablet 5 mg PO DAILY Qty: 14 0RF oxycodone-acetaminophen 7.5-325 mg tablet 1 tab PO Q4-5H PRN (Reason: Pain, Severe) Referrals: [facility] [Provider Group] Josef Deras MD [Primary Care Provider] - Stand Alone Forms: Patient Portal/API/Survey
[2024-11-13 22:16] VITALS: BP 142/71; PULSE 74; RESP 16; O2SAT 96
== END 2024-11-13 22:18 | disposition home or self-care (01) ==
PROVIDERS: Emergency Provider Emergency Medicine; PCP Family Medicine
DX: S62.324A Displaced fracture of shaft of fourth metacarpal bone, right hand, initial encounter for closed fracture (principal); S62.326A Displaced fracture of shaft of fifth metacarpal bone, right hand, initial encounter for closed fracture; W18.30XA Fall on same level, unspecified, initial encounter
CPT/HCPCS: 29125; 73130; 99283

== ENCOUNTER 2024-12-09 16:06 | Emergency (ER) | payer MEDICARE, SELFPAY ==
[2024-12-09 16:10] VITALS: BP 183/81; PULSE 74; RESP 16; TEMP 36.4; O2SAT 97; BMI 28.8
--- NOTE | 2024-12-09 16:23 | ED.HA ---
HPI - Headache <Aleah Birmingham PA-C - Last Filed: 12/09/24 18:26> General Chief Complaint: Headache Stated Complaint: Fall three weeks ago, WADDELL in same area of impact Time Seen by Provider: 12/09/24 16:16 History of Present Illness HPI Narrative: Mr. Mcgrath is a very pleasant 79-year-old male with a past medical history of chronic neck and back pain on pain management, [id number] type 2 diabetes, HTN, peripheral neuropathy who presents to the emergency department for a left frontal headache x2 days. No blood thinners or asprin. Patient states on 11/13/2024 he had a ground level fall causing an abrasion on the left side of his forehead. He was seen in the ED for it at that time but was having no headache or head pain therefore no head imaging was performed, he sustained fractures of the 4th and 5th right metacarpals. Patient states yesterday morning when he woke up he noticed a very mild headache on his left forehead exactly in the spot that his prior abrasion was. Because he takes oxycodone throughout the day he states his pain was not severe or sharp but is not normally there. Pain is not impacted his sleep however it did persist through today which is what prompted his ED arrival. He denies any associated symptoms of confusion, dizziness, lightheadedness, visual disturbance, numbness, tingling, weakness, chest pain, shortness of breath, nausea, vomiting, diarrhea, dysuria, ear pain, dental pain, sore throat, flu-like symptoms. He does not wish for any pain medication at this time. He is with his who contributes to the history. Related Data Home Medications Medication Instructions Recorded Confirmed cholecalciferol (vitamin D3) 50 2,000 iu PO QDAY ##0 03/24/17 mcg (2,000 unit) capsule (Vitamin D3) diphenhydramine 25 1 tab PO HSP PRN ##0 03/24/17 mg-acetaminophen 500 mg tablet (Tylenol PM Extra Strength) meloxicam 15 mg tablet (Mobic) 15 mg PO QPM ##0 03/24/17 metformin 500 mg tablet,extended 1,000 mg PO BIDCC ##0 03/24/17 11/13/24 release 24 hr (Glucophage XR) omega 5-mtu-qle-fish oil 1,000 mg 1,000 mg PO QDAY ##0 03/24/17 (120 mg-180 mg) capsule (Fish Oil) psyllium husk 0.52 gram capsule 0.52 gm PO QDAYP PRN ##0 03/24/17 (Metamucil) gabapentin 600 mg tablet 1,200 mg PO BID ##0 03/25/17 11/13/24 (Neurontin) rosuvastatin 5 mg tablet 5 mg PO HS ##0 08/14/17 oxycodone-acetaminophen 7.5 mg-325 1 tab PO Q4-5H PRN Pain, Severe 11/13/24 11/13/24 mg tablet Previous Rx's Medication Instructions Recorded aspirin 81 mg tablet,delayed 81 mg PO QDAY #30 tabs 03/25/17 release lisinopril 5 mg tablet 5 mg PO DAILY #14 tabs 03/15/20 Allergies Allergy/AdvReac Type Severity Reaction Status Date / Time cephalexin Allergy Severe Anaphylaxis Verified 11/13/24 17:35 Review of Systems <Aleah Birmingham PA-C - Last Filed: 12/09/24 18:26> Review of Systems ROS Unobtainable: All systems reviewed & are unremarkable except as noted in HPI and below Patient History <Aleah Birmingham PA-C - Last Filed: 12/09/24 18:26> Social History Smoking Status: Former smoker Smoking Status: Former smoker alcohol intake frequency: holidays/special occasions only Exam <Aleah Birmingham PA-C - Last Filed: 12/09/24 18:26> Narrative Exam Narrative: GENERAL: 79 year old patient appears stated age. Well-developed patient, in no acute distress. HEAD: Atraumatic. Normocephalic. Subtle scar left forhead from prior abrasion, subjective pain is in this area. EYES: PERRL. Extraocular motions intact. No scleral icterus. No injection or drainage. ENT: Pearly white TMs bilaterally. Nose without bleeding, purulent drainage. Throat without erythema, tonsillar hypertrophy or exudate. Airway patent. NECK: Trachea midline. CARDIOVASCULAR: Regular rate and rhythm. RESPIRATORY: ?Nonlabored respirations. ?Speaking in clear, full sentences. EXTREMITIES: Right hand velcro splint in place. No edema or joint tenderness. NEURO: AOx3. ?Clear speech. ?Moves all 4 extremities appropriately except right hand because of splint. No facial asymmetry. Gross vision intact. Gross hearing intact. Upper and lower extremity strength intact. No pronator drift. SITLT throughout. Initial Vital Signs Initial Vital Signs: Vital Signs Temperature 97.5 F L 12/09/24 16:10 Pulse Rate 74 12/09/24 16:10 Respiratory Rate 16 12/09/24 16:10 Blood Pressure 183/81 H 12/09/24 16:10 Pulse Oximetry 97 12/09/24 16:10 Oxygen Delivery Method Room Air 12/09/24 16:10 <Yeni العلي MD - Last Filed: 12/10/24 09:11> Initial Vital Signs Initial Vital Signs: Vital Signs Temperature 97.5 F L 12/09/24 16:10 Pulse Rate 74 12/09/24 16:10 Respiratory Rate 16 12/09/24 16:10 Blood Pressure 183/81 H 12/09/24 16:10 Pulse Oximetry 97 12/09/24 16:10 Oxygen Delivery Method Room Air 12/09/24 16:10 Course <GEOFF Barger Last Filed: 12/09/24 18:26> Orders Ordered: ED Orders 12/09/24 16:31 CT head/brain wo con Stat Vital Signs Vital signs: Vital Signs - 8 hr 12/09/24 16:10 12/09/24 17:28 Temperature 97.5 F L Pulse Rate 74 76 Respiratory Rate 16 16 Blood Pressure 183/81 H 152/75 H Pulse Oximetry 97 97 Oxygen Delivery Method Room Air Room Air <Yeni العلي MD - Last Filed: 12/10/24 09:11> Orders Ordered: ED Orders 12/09/24 16:31 CT head/brain wo con Stat Vital Signs Vital signs: Vital Signs - 8 hr 12/09/24 16:10 12/09/24 17:28 Temperature 97.5 F L Pulse Rate 74 76 Respiratory Rate 16 16 Blood Pressure 183/81 H 152/75 H Pulse Oximetry 97 97 Oxygen Delivery Method Room Air Room Air MDM - Headache <Aleah Birmingham PA-C - Last Filed: 12/09/24 18:26> Medical Records Attestation: I reviewed the patient's medical records. Imaging Data CT scan - head: Radiologist's Impression: PROCEDURE: CT HEAD/BRAIN WO CON INDICATIONS: left frontal WADDELL; same spot as head trauma fall 11/13 TECHNIQUE: Noncontrast 4.5 mm thick angled axial sections acquired from the foramen magnum to the vertex, with coronal and sagittal reformats. For radiation dose reduction, the following was used: automated exposure control, adjustment of mA and/or kV according to patient size. COMPARISON: [facility], MR, STROKE PROTOCOL, 08/14/2017, 13:46. [facility], CT, HEAD WITHOUT CONTRAST, 08/14/2017, 12:47. FINDINGS: Image quality: Diagnostic. CSF spaces: Basal cisterns are patent. The ventricles are symmetric in size and shape. Brain: On the left, there is subdural hemorrhage seen, which is largely low density, although there are dependently lying hyperdense components. There is a maximal thickness of 8 mm. Minimal associated mass effect is seen. No significant midline shift. No intracranial bleeds or masses. There is cerebral volume loss for age, with resultant ventricular and sulcal prominence. There are periventricular and deep white matter chronic small vessel ischemic changes. There is intracranial internal carotid artery atherosclerosis. Skull and face: Calvarium and visualized facial bones appear intact, without suspicious lesions. Sinuses: Visualized sinuses and mastoids are clear. IMPRESSION: Left-sided subdural hemorrhage can be seen. The appearance is consistent with hemorrhage related to the history of the injury given on 11/13/2024. This appears largely hypodense, yet with layering hyperdense components. Mild associated mass effect is seen, yet without significant midline shift. Note: Case discussed by telephone with Dr. Yeni العلي at 4:53 p.m. [place] time on December 09, 2024. [facility] Narrative Medical decision making narrative: 79-year-old male with a past medical history of chronic neck and back pain on pain management, [id number] type 2 diabetes, HTN, peripheral neuropathy who presents to the emergency department for a left frontal headache x2 days. No blood thinners. His contributes to the history. Differential diagnosis includes but is not limited to prior intracranial abnormality, contusion, tension headache, migraine headache, cluster headache, concussion, etc. On exam the patient is in no acute distress, nontoxic appearing, no focal neurologic deficits. In triage his BP is elevated at 183/81 however pulse respiratory rate temperature O2 sat appropriate. Describes a very mild headache on his left frontal forehead where he had an abrasion and prior head trauma on 11/13/2024. No sudden onset or severe headache, no dizziness, lightheadedness, confusion, visual disturbance, weakness. Patient declines pain medication. After shared decision-making with the patient, we will proceed with head CT to rule out prior intracranial abnormality or new intracranial abnormality given age, hx of fall, new WADDELL. 1653: Radiologist called and spoke with attending physician discussing that patient's head CT reveals an old mild subdural that is consistent with old trauma on 11/13. Report reads left-sided subdermal hemorrhage can be seen. The appearance is consistent with hemorrhage related to the history the injury given on 11/13/2024. This appears largely hypodensity with layering hyperdense components. Mild associated mass effect is seen, yet without significant midline shift. Case reviewed with ED attending Dr. العلي. Because injury was 3 weeks ago, no emergent intervention advised at this time. Discussed very strict return precautions with the patient and signs and symptoms to look out for to come back to ED for repeat imaging. Both him and his verbalized understanding of this. We also discussed his blood pressure which was elevated in triage. Patient states he has not taken blood pressure medication for years and his blood pressure was normal with his primary care doctor on Thursday. We will not initiate any new medications, down to 152/75, but did recommend he take his blood pressure daily, create a blood pressure log and follow up with his primary care doctor. Patient and his were provided with printed copy of his CT report. They verbalized understanding of all information and are agreeable to plan for discharge home, strict return precautions. Patient is stable for discharge at this time. Discharge Plan Departure Patient Disposition: Home Clinical Impression: Subdural hemorrhage Instructions: DI for Subdural Hematoma Activity Restrictions/Additional Instructions: Dear Alcides, Today you were evaluated for left-sided headache after a fall on 11/13/2024. The CT scan of your head revealed what appears to be an old bleed likely from that fall. Please avoid aspirin, ibuprofen, or other nonsteroidal anti-inflammatory drugs at this time. You can continue using your prescribed oxycodone/acetaminophen if needed for pain. If you develop any new or worsening symptoms such as increasing headache, nausea, vomiting, vision change, dizziness, lightheadedness, confusion, weakness, slurred speech, numbness, tingling, any other new or concerning symptoms, call 911 or return to the ER immediately for repeat head CT scan. Please rest, hydrate, take your blood pressure daily and write it down to bring with you to your next primary care doctor's appointment. Please call your primary care doctor for an appointment as soon as possible. You may also follow up with [facility] neurology at [phone] Please follow up with your primary care doctor within the next 1-3 days for ER follow-up. (If you do not have a PCP you can call [phone]. ?to schedule an appointment with an [facility] Primary Care Provider) IF YOU DEVELOP ANY NEW OR WORSENING SYMPTOMS, RETURN TO THE ER! Please read the attached instructions, they highlight more specific treatments and interventions for you at home. Thank you for letting me participate in your care, Aleah Birmingham PA-C Prescriptions: No Action metformin [Glucophage XR] 500 MG tablet extended release 24 hr 1,000 mg PO BIDCC Qty: 0 meloxicam [Mobic] 15 MG tablet 15 mg PO QPM Qty: 0 diphenhydramine-acetaminophen [Tylenol PM Extra Strength] 500 MG/25 MG tablet 1 tab PO HSP PRNQty: 0 psyllium husk [Metamucil] 0.52 GM capsule 0.52 gm PO QDAYP PRNQty: 0 cholecalciferol (vitamin D3) [Vitamin D3] 2,000 UNIT capsule 2,000 iu PO QDAY Qty: 0 omega 1-rmp-oie-fish oil [Fish Oil] 1,000 MG capsule 1,000 mg PO QDAY Qty: 0 gabapentin [Neurontin] 600 MG tablet 1,200 mg PO BID Qty: 0 aspirin 81 MG tablet,delayed release (DR/EC) 81 mg PO QDAY Qty: 30 0RF rosuvastatin 5 MG tablet 5 mg PO HS Qty: 0 lisinopril 5 mg tablet 5 mg PO DAILY Qty: 14 0RF oxycodone-acetaminophen 7.5-325 mg tablet 1 tab PO Q4-5H PRN (Reason: Pain, Severe) Referrals: Deandre Beltran MD [Primary Care Provider] - Stand Alone Forms: Patient Portal/API/Survey ED Sign-out <Yeni العلي MD - Last Filed: 12/10/24 09:11> Cosign ED Attending Cosignature Attestation: I was immediately available in the department for consultation throughout this patient's visit. Yeni العلي MD
--- NOTE | 2024-12-09 16:31 | DI.CT.S_ITS ---
PROCEDURE: CT HEAD/BRAIN WO CON INDICATIONS: left frontal WADDELL; same spot as head trauma fall 11/13 TECHNIQUE: Noncontrast 4.5 mm thick angled axial sections acquired from the foramen magnum to the vertex, with coronal and sagittal reformats. For radiation dose reduction, the following was used: automated exposure control, adjustment of mA and/or kV according to patient size. COMPARISON: [facility], MR, STROKE PROTOCOL, 08/14/2017, 13:46. [facility], CT, HEAD WITHOUT CONTRAST, 08/14/2017, 12:47. FINDINGS: Image quality: Diagnostic. CSF spaces: Basal cisterns are patent. The ventricles are symmetric in size and shape. Brain: On the left, there is subdural hemorrhage seen, which is largely low density, although there are dependently lying hyperdense components. There is a maximal thickness of 8 mm. Minimal associated mass effect is seen. No significant midline shift. No intracranial bleeds or masses. There is cerebral volume loss for age, with resultant ventricular and sulcal prominence. There are periventricular and deep white matter chronic small vessel ischemic changes. There is intracranial internal carotid artery atherosclerosis. Skull and face: Calvarium and visualized facial bones appear intact, without suspicious lesions. Sinuses: Visualized sinuses and mastoids are clear. IMPRESSION: Left-sided subdural hemorrhage can be seen. The appearance is consistent with hemorrhage related to the history of the injury given on 11/13/2024. This appears largely hypodense, yet with layering hyperdense components. Mild associated mass effect is seen, yet without significant midline shift. Note: Case discussed by telephone with Dr. Yeni العلي at 4:53 p.m. [place] time on December 09, 2024. Dictated by: Bhaskar Neal M.D. on 12/09/2024 at 15:49 Approved by: Bhaskar Neal M.D. on 12/09/2024 at 15:54
[2024-12-09 17:28] VITALS: BP 152/75; PULSE 76; RESP 16; O2SAT 97
== END 2024-12-09 17:29 | disposition home or self-care (01) ==
PROVIDERS: Emergency Provider Physician Assistant; PCP Family Medicine
DX: S06.5XAA Traumatic subdural hemorrhage with loss of consciousness status unknown, initial encounter (principal); W18.30XD Fall on same level, unspecified, subsequent encounter
CPT/HCPCS: 70450; 99282; 99284

== ENCOUNTER → 2025-03-09 | Outpatient (CLI) | payer MEDICARE, SELFPAY ==
--- NOTE | 2025-03-09 12:02 | DI.CT.S_ITS ---
PROCEDURE: CT CHEST ABD PEL W CON INDICATIONS: Rectal CA TECHNIQUE: After the administration of intravenous contrast, 5 mm thick sections acquired from the lung apices to the symphysis. 5 mm coronal and sagittal reformats were performed, with additional 7 mm MIP reformats through the lungs. For radiation dose reduction, the following was used: automated exposure control, adjustment of mA and/or kV according to patient size. COMPARISON: [facility], CT, CT CHEST ABD PEL W CON, 07/01/2024, 13:28. FINDINGS: Image quality: Excellent. CHEST: Unchanged right lower lobe lateral basal ground-glass nodule with 3 mm solid component and approximately 1.9 cm diameter. Mild centrilobular and paraseptal COPD emphysematous changes unchanged. Mild pericardial fluid or pericardial thickening anteriorly-inferiorly measuring up to 1 cm depth unchanged. Mild calcifications of the coronary arteries and aortic arch unchanged. A few mildly enlarged aortic or pulmonary, anterior tracheal lymph nodes measuring up to 7 mm short axis commonly reactive/inflammatory unchanged. Mild nonspecific wall thickening of the mid and distal esophagus some of which commonly artifact from partial nondistention although esophagitis or other process could be considered, although less than on the prior exam. Right-sided Port-A-Cath with distal tip distal superior vena cava/right atrial junction. No new nodules. No pneumothorax, no pleural effusion. Lower Neck: No enlarged lymph nodes. Thyroid: No thyroid nodules which require sonographic follow up, per consensus guidelines. Heart: Heart size is normal. Thoracic Vessels: The aorta and pulmonary arteries demonstrate normal size. ABDOMEN: Liver: Mild diffuse low-attenuation of the liver commonly hepatic steatosis similar to the prior exam. Moderate calcifications with soft plaque or laminar thrombus of the aorta unchanged. 1.2 cm right renal cyst interpolar region unchanged. Numerous high attenuation radiation seeds are noted in the prostate bed. Nonspecific wall thickening of the distal rectum/anus commonly artifact from partial nondistention although proctitis, hemorrhoids, post radiation changes or other anorectal lesion could be considered. Mild nonspecific wall thickening of the urinary bladder measures up to 1 cm thickness unchanged commonly artifact from partial nondistention although cystitis, chronic urinary retention, infiltrative bladder wall process or other cause could be considered. Osteopenia and moderate degenerative changes lower thoracic, lumbar spine and degenerative changes of the sacroiliac joints and hips unchanged. Appendix is not definitively identified and may be surgically absent. Diffuse fatty atrophy of the pancreas unchanged Gallbladder: No radiopaque gallstones or wall thickening. Biliary ducts: No biliary dilation. Pancreas: No ductal dilation. Spleen: Size is within normal limits. Adrenal Glands: 1 cm thickening/nodularity of bilateral adrenals unchanged Kidneys and Ureters: No hydronephrosis. No solid mass. No complex renal cystic lesion which requires follow up. Stomach and Bowel: Normal colonic caliber, without significant wall thickening. Peritoneum: No abnormal intraperitoneal fluid. No free air. Ventral Wall: No significant ventral hernia. Abdominal Nodes: No retroperitoneal or mesenteric adenopathy by size criteria. Vessels: Aorta and inferior vena cava are normal in size. PELVIS: Pelvic Organs: Unremarkable. Pelvic Nodes: No enlarged lymph nodes. Miscellaneous: No inguinal hernias are seen. IMPRESSION: Ground-glass nodule right lower lobe unchanged. Adenocarcinoma-spectrum indolent pulmonary lesion could give this appearance and continued follow-up suggested. Nonspecific wall thickening of the distal rectum/anus as discussed above. Nonspecific wall thickening of the urinary bladder unchanged. Other chronic findings as above. Dictated by: Daniel Rodríguez M.D. on 03/09/2025 at 15:10 Approved by: Daniel Rodríguez M.D. on 03/09/2025 at 15:59
== END ==
LOC: CT 12:02
PROVIDERS: PCP Family Medicine; Referring Provider Internal Medicine Medical Oncology; Visit Provider Internal Medicine Medical Oncology
DX: C20 Malignant neoplasm of rectum (principal); R91.1 Solitary pulmonary nodule; I25.10 Atherosclerotic heart disease of native coronary artery without angina pectoris; I70.0 Atherosclerosis of aorta; N28.1 Cyst of kidney, acquired; M47.814 Spondylosis without myelopathy or radiculopathy, thoracic region; M47.816 Spondylosis without myelopathy or radiculopathy, lumbar region
CPT/HCPCS: 71260; 74177; Q9967

== ENCOUNTER → 2025-09-04 12:33 | Outpatient (CLI) | payer MEDICARE, SELFPAY ==
--- NOTE | 2025-09-04 12:35 | DI.CT.S_ITS ---
PROCEDURE: CT CHEST ABD PEL W CON INDICATIONS: rectal and prostate cancer surveillance. TECHNIQUE: After the administration of intravenous contrast, 5 mm thick sections acquired from the lung apices to the symphysis. 5 mm coronal and sagittal reformats were performed, with additional 7 mm MIP reformats through the lungs. For radiation dose reduction, the following was used: automated exposure control, adjustment of mA and/or kV according to patient size. COMPARISON: [facility], CT, CT ABDOMEN PELVIS W CON, 02/28/2022, 13:23. [facility], CT, CT CHEST ABD PEL W CON, 07/01/2024, 13:28. [facility], CT, CT CHEST ABD PEL W CON, 03/09/2025, 13:11. FINDINGS: Image quality: Excellent. CHEST: Lower Neck: No enlarged lymph nodes. Thyroid: No thyroid nodules which require sonographic follow up, per consensus guidelines. Axillae: No enlarged lymph nodes. Chest Wall: Right port terminates in the superior right atrium. Lungs and Pleura: No pneumothorax or pleural effusions. 2 cm ground-glass nodule in the lateral right lower lobe on image 202 is unchanged. Small solid component measuring up to 4 mm is similar to the prior study. Heart: Heart size is normal. No pericardial effusion. Coronary artery calcifications are noted. Thoracic Vessels: The aorta and pulmonary arteries demonstrate normal size. Calcifications are noted in the thoracic arch. Mediastinum and [place]: No enlarged lymph nodes. Esophagus: Mild lower thoracic esophagus wall thickening. Small hiatal hernia. No focal esophageal mass identified. ABDOMEN: Liver: Fatty infiltration of the liver. No mass, intrahepatic biliary dilation or cirrhosis. Portal vein is patent. Gallbladder: No radiopaque gallstones or wall thickening. Biliary ducts: No biliary dilation. Pancreas: No ductal dilation. Spleen: Size is within normal limits. Adrenal Glands: Stable 1.3 cm right adrenal nodule. Normal left adrenal gland. Kidneys and Ureters: No hydronephrosis. No solid mass. No complex renal cystic lesion which requires follow up. Stomach and Bowel: Rectal wall thickening measuring up to 1.6 cm in thickness image 3, 98 is more prominent than prior studies. Craniocaudal extent of the rectal wall thickening spans 4.9 cm on image 4, 85. New 7 mm perirectal node noted on image 197. Scattered colonic diverticula noted without acute inflammation. 2.8 cm duodenal diverticulum containing fluid and contrast. No associated inflammation. Otherwise, stomach and small bowel are grossly unremarkable. Peritoneum: No abnormal intraperitoneal fluid. No free air. Ventral Wall: No significant ventral hernia. Abdominal Nodes: No retroperitoneal or mesenteric adenopathy by size criteria. Vessels: Aorta and inferior vena cava are normal in size. Moderate to marked atheromatous plaques are noted in the nonaneurysmal abdominal aorta. PELVIS: Pelvic Organs: Prostate radiotherapy seeds noted. Bladder: No bladder wall thickening, accounting for underdistention. Pelvic Nodes: See above. Miscellaneous: No inguinal hernias are seen. Bones: No aggressive osseous abnormality. Multilevel degenerative disc disease and facet arthopathy noted. IMPRESSION: Increasing circumferential rectal wall thickening measuring up to 1.6 cm in diameter. This raises concerns for residual or recurrent rectal cancer. Infection and inflammation on the differential but felt to be less likely. New 7 mm perirectal lymph node is suspicious given the above findings. 2 cm right lower lobe ground-glass nodule is a solid 4 mm nodular component. As before, indolent adenocarcinoma suspected. Dictated by: Tiffanie Chong M.D. on 09/05/2025 at 11:43 Approved by: Tiffanie Chong M.D. on 09/05/2025 at 12:11
[2025-09-04 13:08] LABS: Estimated Glomerular Filt Rate > 60 mL/min (>60)
== END ==
LOC: CT 12:35
PROVIDERS: PCP Internal Medicine Medical Oncology; Referring Provider Internal Medicine Medical Oncology; Visit Provider Internal Medicine Medical Oncology
DX: C20 Malignant neoplasm of rectum (principal); R59.0 Localized enlarged lymph nodes; R91.1 Solitary pulmonary nodule
CPT/HCPCS: 36415; 71260; 74177; 82565; Q9967